=== PATIENT | female | born 1975 | race Two or more races ===

== ENCOUNTER 2018-10-22 22:08 | Emergency (ER) | payer SELFPAY ==
[~2018-10-22] VITALS: Ht 160 cm; Wt 101.1 kg
[~2018-10-22 22:08] MED LIST: ACET-141 PO; D-ME118S6 PO; HYDR25TA6 PO
[2018-10-22 22:18] VITALS: Ht 160 cm; Wt 101.1 kg
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
[2018-10-23 01:25] VITALS: BP 132/92; PULSE 78; RESP 18
[2018-10-23] MEDS ORDERED: IBUPROFEN 600 MG TAB PO ONE (01:30)
== END 2018-10-23 01:25 | disposition home or self-care (01) ==
LOC: E/R 22:08
DX: S00.12XA Contusion of left eyelid and periocular area, initial encounter (principal); Y04.2XXA Assault by strike against or bumped into by another person, initial encounter; Y92.9 Unspecified place or not applicable; Z04.71 Encounter for examination and observation following alleged adult physical abuse
CPT/HCPCS: 70450; 70486